=== PATIENT | male | born 1985 | race African-American/Black ===

== ENCOUNTER 2022-05-05 05:59 | Emergency (ER) | payer OTHER, SELFPAY ==
[2022-05-05 06:08] VITALS: BP 144/86; PULSE 76; RESP 18; TEMP 36.5; O2SAT 98
[2022-05-05 07:45] VITALS: BP 141/91; PULSE 67; RESP 20; O2SAT 100
[2022-05-05 08:29] VITALS: BP 139/86; PULSE 71; RESP 18; O2SAT 99
--- NOTE | 2022-05-05 08:32 | ED.URI ---
HPI - URI/Sore Throat General Chief Complaint: Upper Respiratory Infection Stated Complaint: throat and ear pain Time Seen by Provider: 05/05/22 08:31 Source: patient Mode of arrival: ambulatory Limitations: no limitations History of Present Illness HPI Narrative: 36 years old -[place] male presents with sore throat, nasal congestion, postnasal discharge, runny nose started roughly 1 year ago after having COVID infection. Patient symptoms are not improving. Currently his main complaint is sore throat. He denies any fever, chills, nausea, vomiting, shortness of breath or chest pain. Related Data Allergies Allergy/AdvReac Type Severity Reaction Status Date / Time No Known Allergies Allergy Verified 05/05/22 07:47 Review of Systems Review of Systems: All systems reviewed & are unremarkable except as noted in HPI and below Exam Narrative: General appearance: Well-developed, well-nourished Skin: Normal color Head: Normocephalic, nontraumatic Eyes: Clear conjunctiva ENT: Erythematous oropharynx, ears normal, nasal congestion with runny nose Neck: Supple, nontender Chest and respiratory: Airway patent, no respiratory distress, no accessory muscle use Heart: Regular rate/rhythm Abdomen: Soft, nontender, no organomegaly, quiet bowel sounds Vascular: Normal peripheral pulses, normal capillary refill. 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, no gross motor deficit Course Course Emergency Course: Stable Vital Signs Vital signs: Vital Signs Temperature 36.5 C 05/05/22 06:08 Pulse Rate 76 05/05/22 06:08 Respiratory Rate 18 05/05/22 06:08 Blood Pressure 144/86 H 05/05/22 06:08 Pulse Oximetry 98 05/05/22 06:08 Oxygen Delivery Room Air 05/05/22 06:08 Temperature 36.5 C 05/05/22 06:08 Pulse Rate 71 05/05/22 08:29 Respiratory Rate 18 05/05/22 08:29 Blood Pressure 139/86 05/05/22 08:29 Pulse Oximetry 99 05/05/22 08:29 Oxygen Delivery Room Air 05/05/22 06:08 MDM - URI/Sore Throat Differential Diagnosis Differential diagnosis: Likely upper respiratory infection, viral infection and other (Long COVID) Lab Data Labs: Strep Screen Presumptive Negative *(Reference Range: Negative)* Critical Care Time Critical Care Time Critical Care Time: No Discharge Plan Discharge Clinical Impression: Long COVID, Pharyngitis Patient Disposition: Home, Self-Care Condition: Stable Instructions: Antibiotic Form, Pharyngitis (ED), Long COVID (ED) Additional Instructions: Return if symptoms are worsening , call your family physician for appointment, take Tylenol as as needed for aches and pain, continue home medications. Prescriptions: New azithromycin [Zithromax] 250 mg tablet 250 mg PO DAILY 5 Days Qty: 5 0RF methylprednisolone [Medrol (Griffin)] 4 mg tablets,dose pack See Rx Instructions PO .COMPLEX Qty: 21 0RF Rx Instructions: orally per package directions fluticasone propionate [Flonase Allergy Relief] 50 mcg/actuation spray,suspension 2 spray intranasal DAILY Qty: 36.4 0RF Rx Instructions: administer into each nostril Follow-up/Referrals: Blair Koehler MD [Physician] - 05/09/22 UNKNOWN,DOCTOR [Primary Care Provider] -
== END 2022-05-05 09:06 | disposition home or self-care (01) ==
PROVIDERS: Emergency Provider Emergency Medicine
DX: J02.9 Acute pharyngitis, unspecified (principal); U09.9 Post COVID-19 condition, unspecified
CPT/HCPCS: 87081; 87880; 99283

== ENCOUNTER 2022-05-06 18:20 | Emergency (ER) | payer OTHER, SELFPAY ==
--- NOTE | ~2022-05-06 | XR_ITS ---
EXAMINATION: XR chest 2V DATE: 05/06/2022 18:56 INDICATION: Palpitations. TECHNIQUE: Frontal and lateral views of the chest were obtained. COMPARISON: None. FINDINGS: The chest demonstrates clear lungs without pneumonia, pleural effusion, or pneumothorax. Th e heart size is normal. IMPRESSION: 1. No acute cardiopulmonary disease. Reviewed, dictated and finalized at location A.
[2022-05-06 18:25] VITALS: BP 215/86; PULSE 96; RESP 18; TEMP 36.4; O2SAT 97
--- NOTE | 2022-05-06 18:27 | ECG_ITS ---
Measurements Intervals [employer] Rate: 93 P: 61 [place]: 161 QRS: -69 QRSD: 105 T: 31 QT: 345 QTc: 430 Interpretive Statements SINUS RHYTHM ATRIAL PREMATURE COMPLEXES POSSIBLE LEFT ATRIAL ENLARGEMENT LEFT ANTERIOR FASCICULAR BLOCK ABNORMAL ECG NO PREVIOUS ECG AVAILABLE FOR COMPARISON Electronically Signed On 05-07-2022 9:03:39 CDT by Joseph Small D.O.
[2022-05-06 18:36] VITALS: BP 145/106; PULSE 88; RESP 20; O2SAT 98
--- NOTE | 2022-05-06 18:42 | ED.ARRPALP ---
HPI - Arrhythmia/Palpitations General Chief Complaint: Arrhythmia/Palpitations Stated Complaint: lightheaded, dizzy, chest palpitations Time Seen by Provider: 05/06/22 18:41 History of Present Illness HPI narrative: Patient is a 36-year-old male with a history of A. fib status post ablation, hypertension presenting with palpitations. Patient states that he was filling up his truck when he started feeling like his heart was skipping beats. States that it feels like it is squeezing out of order. States he also felt lightheaded. He denies any chest pain or shortness of breath. States that he currently feels fine except for the random moments that he feels the palpitations. States that he has a history of A. fib which he has had an ablation for. He is concerned that maybe his A. fib medications need to be adjusted. He denies headache, numbness or weakness, chest pain, abdominal pain, nausea or vomiting, leg swelling, back pain. Related Data Home Medications Medication Instructions Recorded Confirmed diltiazem HCl 240 mg capsule,24 mg PO 05/06/22 hr,extended release metoprolol succinate 100 mg mg PO 05/06/22 tablet,extended release 24 hr Allergies Allergy/AdvReac Type Severity Reaction Status Date / Time No Known Allergies Allergy Verified 05/05/22 07:47 Review of Systems Review of Systems: All systems reviewed & are unremarkable except as noted in HPI and below Exam Narrative: GENERAL: Well-appearing, well-nourished, and in no acute distress. HEAD: Normocephalic, atraumatic. EYES: PERRLA and EOMI. ENT: Nares clear, no rhinorrhea or epistaxis. Mucous membranes moist. NECK: Supple. CHEST: Clear to auscultation. No respiratory distress. HEART: Regular rate and rhythm. No murmur heard. Normal peripheral pulses. ABDOMEN: Soft, nontender, nondistended, normal active bowel sounds. EXTREMITIES: Normal range of motion. No edema. SKIN: Warm, dry, no rash. NEURO: No focal deficits. Alert and oriented x3. PSYCH: Normal mood and affect. Course Vital Signs Vital signs: Vital Signs Temperature 97.6 F 05/06/22 18:25 Pulse Rate 96 05/06/22 18:25 Respiratory Rate 18 05/06/22 18:25 Blood Pressure 215/86 H 05/06/22 18:25 Pulse Oximetry 97 05/06/22 18:25 Oxygen Delivery Room Air 05/06/22 18:25 Temperature 97.6 F 05/06/22 18:25 Pulse Rate 78 05/06/22 20:38 Respiratory Rate 22 H 05/06/22 20:38 Blood Pressure 123/72 05/06/22 20:38 Pulse Oximetry 97 05/06/22 20:38 Oxygen Delivery Room Air 05/06/22 18:25 MDM - Arrhythmia/Palpitations MDM Narrative Medical decision making narrative: Patient is a 36-year-old male with history as above presenting with palpitations. Patient is hypertensive, otherwise vitals are within normal limits. Patient is well-appearing and in no acute distress. EKG with normal sinus rhythm with occasional PACs, left anterior fascicular block, no ST elevations or depressions. Blood work is within normal limits. Patient received fluids and on reevaluation states that he feels well. States that he follows with a principal security architect in his home state. Recommended that he follow-up closely with his principal security architect. Strict return precautions given. Patient voiced understanding and is agreeable with plan. Discharged in stable condition. Lab Data Result diagrams: 05/06/22 18:39 05/06/22 18:39 Labs: Lab Results 05/06/22 05/06/22 05/06/22 Range/Units 18:38 18:39 18:39 WBC 13.3 H (4.5-10.0) K/mm3 RBC 4.87 (4.6-6.20) M/mm3 Hgb 14.8 (14.0-18.0) g/dL Hct 44.1 (42.0-52.0) % MCV 90.6 (80-100) fl MCH 30.4 (26-34) pg MCHC 33.6 (32-36) g/dl RDW 13.2 (11.5-14.5) % Plt Count 282 (150-375) k/mm3 MPV 9.8 (7.4-10.4) fl Immature Gran % (Auto) 0.9 H (0-0.5) % Neut % (Auto) 75.5 H (45.5-73.1) % Lymph % (Auto) 15.7 L (18.3-44.2) % [place] % (Auto) 7.8 (2.6-8.5) % Eos % (Auto) 0.
[2022-05-06 18:46] LABS: Basophils Percent Auto 0.1 % (0.2-1.2); Hematocrit 44.1 % (42.0-52.0); Hemoglobin 14.8 g/dL (14.0-18.0); Immature Granulocyte Absolute 0.12 K/mm3 (0.00-0.031); Immature Granulocyte Percent A 0.9 % (0-0.5); Lymphocytes Absolute Auto 2.08 K/mm3 (0.9-3.2); Lymphocytes Percent Auto 15.7 % (18.3-44.2); Mean Corpuscular HGB Conc 33.6 g/dl (32-36); Mean Corpuscular Hemoglobin 30.4 pg (26-34); Mean Corpuscular Volume 90.6 fl (80-100); Mean Platelet Volume 9.8 fl (7.4-10.4); Monocytes Percent Auto 7.8 % (2.6-8.5); Neutrophils Absolute Auto 10.1 K/mm3 (1.3-6.7); Neutrophils Percent Auto 75.5 % (45.5-73.1); Platelet Count Result 282 k/mm3 (150-375); Red Blood Count 4.87 M/mm3 (4.6-6.20); Red Cell Distribution Width 13.2 % (11.5-14.5); White Blood Count 13.3 K/mm3 (4.5-10.0)
[2022-05-06 18:54] LABS: Prothrombin Time 12.6 Seconds (11.1-14.7)
[2022-05-06 18:55] LABS: Partial Thromboplastin Time 29.8 SECONDS (22.3-36.8)
[2022-05-06 19:15] VITALS: BP 127/79; PULSE 86; RESP 10; O2SAT 97
[2022-05-06 19:15] LABS: Alanine Aminotransferase 34 U/L (6-50); Albumin Level 4.6 g/dL (3.5-5.1); Alkaline Phosphatase 119 U/L (38-126); Anion Gap 16 mmol/L (8-16); Aspartate Amino Transferase 31 U/L (17-59); Bilirubin,Total 0.5 mg/dL (0.2-1.3); Blood Urea Nitrogen 20 mg/dL (9-20); Carbon Dioxide 23 mmol/L (22-30); Chloride 104 mmol/L (98-107); Estimated CRCL calculation 128 ml/min; Estimated Glomerular Filt Rate > 60; Glucose 159 mg/dL (65-110); Lipase 53 U/L (23-300); Potassium 3.9 mmol/L (3.4-5.0); Sodium 143 mmol/L (137-145)
[2022-05-06 19:26] LABS: Troponin I < 0.012 ng/mL (0.000-0.034)
[2022-05-06] MEDS: SODIUM CHLORIDE 0.9% IV 1,000 ML 999 ML IV CONT (19:59)
[2022-05-06 20:00] VITALS: BP 123/72; PULSE 76; RESP 20; O2SAT 97
[2022-05-06 20:10] VITALS: PULSE 74
[2022-05-06 20:37] LABS: Magnesium 1.9 mg/dL (1.6-2.3)
[2022-05-06 20:38] VITALS: BP 123/72; PULSE 78; RESP 22; O2SAT 97
[2022-05-06 21:17] LABS: Troponin I < 0.012 ng/mL (0.000-0.034)
== END 2022-05-06 21:03 | disposition home or self-care (01) ==
PROVIDERS: Emergency Provider Emergency Medicine
DX: R00.2 Palpitations (principal); I48.91 Unspecified atrial fibrillation; I10 Essential (primary) hypertension; I49.1 Atrial premature depolarization; I44.4 Left anterior fascicular block; R94.31 Abnormal electrocardiogram [ECG] [EKG]
CPT/HCPCS: 36415; 71046; 80053; 83690; 83735; 84484; 85025; 85610; 85730; 93005; 96360; 99284; J7030